=== PATIENT | male | born 1970 | race Caucasian/White ===

== ENCOUNTER 2018-10-08 18:38 | Emergency (ER) | payer SELFPAY ==
[2018-10-08] MEDS ORDERED: Lorazepam 2 MG/ML VIAL ONE (19:01)
[2018-10-08 19:34] LABS: #Basophils 0.1 thou/uL (0.0-0.2); #Eosinphils 0.2 thou/uL (0.0-0.7); #Lymphocytes 3.1 thou/uL (1.20-3.40); #Monocytes 0.8 thou/uL (0.11-0.59); #Neutrophils 10.5 thou/uL (1.40-6.50); %Eosinophils 1.4 % (0.0-10.0); %Lymphocytes 20.8 % (21.0-51.0); %Monocytes 5.5 % (0.0-10.0); %Neutrophils 71.3 % (42.0-75.0); Hemoglobin 16.8 g/dL (14.0-18.0); Mean Corpuscular Hemoglobin 30.3 pg (27.0-31.0); Mean Corpuscular Volume 86.5 fL (78.0-98.0); Mean Platelet Volume 7.2 fL (7.4-10.4); Platelet Count 325 thou/uL (130-400); RBC Distribution Width 11.3 % (11.5-14.5); Red Blood Cell (RBC) Count 5.53 mill/uL (4.70-6.10); White Blood Cell (WBC) Count 14.7 thou/uL (4.8-10.8)
[2018-10-08 19:52] LABS: ALT (SGPT) 51 U/L (8-55); AST (SGOT) 26 U/L (5-34); Albumin 4.8 g/dL (3.5-5.0); Alkaline Phosphatase 53 U/L (40-150); Anion Gap 17 mmol/L (10-20); BUN (Urea Nitrogen) 24 mg/dL (8.9-20.6); Bilirubin, Total 0.8 mg/dL (0.2-1.2); Calc. Creatinine Clearance 0 mL/min (70-130); Calcium 9.8 mg/dL (7.8-10.44); Carbon Dioxide 21 mmol/L (22-29); Chloride 107 mmol/L (98-107); Estimated GFR-MDRD 51; Globulin 2.6 g/dL (2.4-3.5); Glucose 79 mg/dL (70-105); Protein, Total 7.4 g/dL (6.0-8.3); Sodium 141 mmol/L (136-145)
[2018-10-08 19:55] LABS: Prothrombin Time 13.3 SEC (12.0-14.7)
--- NOTE | 2018-10-08 20:18 | RAD ---
PA AND LATERAL CHEST X-RAY 10/08/18 HISTORY: Chest pain. COMPARISON: 07/26/15. FINDINGS: The cardiac silhouette is mildly enlarged. The pulmonary vasculature is within normal limits. The tim gs are clear. There has been no interval change from prior exam. IMPRESSION: 1. No acute cardiopulmonary process. 2. Mild cardiomegaly. POS: [facility]
--- NOTE | 2018-10-08 20:31 | RAD ---
TWO VIEWS NECK SOFT TISSUES: 10/08/18 INDICATION: Report of a chicken bone in the throat. COMPARISON: None. FINDINGS: There is a radiopaque density seen within the region of the aryepiglottic fold which may reflect a sm all retained chicken bone. The remaining visualized soft tissues of the neck are otherwise within nor mal limits. The lung apices are clear. Mild spondylosis seen involving the cervical spine. IMPRESSION: Small radiopaque density seen within the region of the aryepiglottic folds may reflect the retained c hicken bone. Recommend direct visualization. POS: [facility]
== END 2018-10-08 20:18 | disposition short-term general hospital (02) ==
LOC: MADERS 18:38
DX: T18.128A Food in esophagus causing other injury, initial encounter (principal); I10 Essential (primary) hypertension; F17.220 Nicotine dependence, chewing tobacco, uncomplicated; Z79.899 Other long term (current) drug therapy
CPT/HCPCS: 36415; 70360; 71046; 80053; 85025; 85610; J1610; J2060

== ENCOUNTER 2019-05-17 15:51 | Emergency (ER) | payer SELFPAY ==
[2019-05-17] MEDS ORDERED: Fentanyl 100 MCG/2 ML VIAL ONE ×2 (15:55→15:56)
[2019-05-17] MEDS ORDERED: Propofol 1,000 MG/100 ML VIAL IV ONE (16:07)
--- NOTE | 2019-05-17 16:39 | RAD ---
RIGHT ANKLE TWO VIEWS: HISTORY: Injury. FINDINGS: There is fracture-dislocation at the ankle. There posterior dislocation of the tibiotalar joint with the talus posteriorly dislocated. There is evidence of a lateral malleolar fracture, which is not a dequately evaluated on this two view study. Medial and posterior malleolar fracture. POS: [facility]
--- NOTE | 2019-05-17 16:44 | RAD ---
RIGHT ANKLE THREE VIEWS: INDICATIONS: Post reduction. COMPARISON: Pre-reduction films. FINDINGS: Cast material is now in place. The ankle-dislocation has been reduced. The tibiotalar joint shows n ormal alignment. A trimalleolar fracture is noted. Fractures of the lateral malleolus, posterior ma lleolus, and medial malleolus noted. No significant displacement seen on this post reduction study. POS: [facility]
[2019-05-17] MEDS ORDERED: Ibuprofen 800 MG TAB ONE (17:18)
[2019-05-17] MEDS ORDERED: HYDROcodone/Acetaminophen 5/325 mg Tablet ONE (17:18)
== END 2019-05-17 17:23 | disposition home or self-care (01) ==
LOC: MADERS 15:51
DX: S82.851A Displaced trimalleolar fracture of right lower leg, initial encounter for closed fracture (principal); S93.04XA Dislocation of right ankle joint, initial encounter; I10 Essential (primary) hypertension; K21.9 Gastro-esophageal reflux disease without esophagitis; F41.9 Anxiety disorder, unspecified; F17.220 Nicotine dependence, chewing tobacco, uncomplicated; W18.11XA Fall from or off toilet without subsequent striking against object, initial encounter; Y92.009 Unspecified place in unspecified non-institutional (private) residence as the place of occurrence of the external cause; Z79.899 Other long term (current) drug therapy
CPT/HCPCS: J2704; J3010

== ENCOUNTER 2019-09-28 11:39 | Emergency (ER) | payer SELFPAY ==
--- NOTE | 2019-09-28 12:43 | CT ---
CT head noncontrast HISTORY: Headache. Prior brain tumor with resection. COMPARISON: 03/05/2007. FINDINGS: There is no evidence of acute intracranial hemorrhage or infarct. Postoperative changes of the right frontotemporal calvarium with encephalomalacia of the underlying right frontal lobe. Consistent with prior tumor resection. There is no mass effect or shift of midline structures. Ventri cles are unremarkable. Visualized paranasal sinuses remain well aerated. IMPRESSION: Prior right frontal craniotomy with tumor resection and residual encephalomalacia. No acu te intracranial abnormalities are demonstrated.
== END 2019-09-28 13:07 | disposition home or self-care (01) ==
LOC: MADERS 11:39
DX: R51 Headache (principal); M79.10 Myalgia, unspecified site; I10 Essential (primary) hypertension; K21.9 Gastro-esophageal reflux disease without esophagitis; F41.9 Anxiety disorder, unspecified; F17.220 Nicotine dependence, chewing tobacco, uncomplicated; Z79.899 Other long term (current) drug therapy; Z85.841 Personal history of malignant neoplasm of brain
CPT/HCPCS: 70450

== ENCOUNTER 2020-02-20 13:09 | Emergency (ER) | payer SELFPAY ==
--- NOTE | 2020-02-20 13:49 | RAD ---
EXAM: Chest PA and lateral: HISTORY: Cough. COMPARISON: 10/08/2018 FINDINGS: Heart: Normal cardiac silhouette Aorta: Unremarkable Pulmonary vessels: Normal Costophrenic angles: Costophrenic angles are clear. Lungs: No consolidation or masses. Pneumothorax: No pneumothorax Osseous structures: No osseous abnormalities IMPRESSION: No acute cardiopulmonary process.
[2020-02-20] MEDS ORDERED: Benzonatate 100 MG CAP ONE (14:09)
== END 2020-02-20 14:14 | disposition home or self-care (01) ==
LOC: MADERS 13:09
DX: J06.9 Acute upper respiratory infection, unspecified (principal); K21.9 Gastro-esophageal reflux disease without esophagitis; F41.9 Anxiety disorder, unspecified; F17.220 Nicotine dependence, chewing tobacco, uncomplicated; Z79.899 Other long term (current) drug therapy
CPT/HCPCS: 71046

== ENCOUNTER 2020-04-25 20:14 | Emergency (ER) | payer SELFPAY ==
[2020-04-25 20:55] LABS: Bilirubin Negative (Negative); Blood, Urine Negative (Negative); Clarity Clear (Clear); Glucose, Urine (Dipstick) Negative (Negative); Leukocyte Negative (Negative); Nitrite Negative (Negative); Protein, Urine (Dipstick) Negative (Neg-Trace)
== END 2020-04-25 21:16 | disposition home or self-care (01) ==
LOC: MADERS 20:14
DX: R31.9 Hematuria, unspecified (principal); I10 Essential (primary) hypertension; K21.9 Gastro-esophageal reflux disease without esophagitis; F41.9 Anxiety disorder, unspecified; F17.220 Nicotine dependence, chewing tobacco, uncomplicated; Z79.899 Other long term (current) drug therapy
CPT/HCPCS: 81003; 87086; 99283

== ENCOUNTER 2021-11-13 13:54 | Emergency (ER) | payer OTHER, SELFPAY ==
[2021-11-13 15:18] LABS: #Basophils 0.1 thou/uL (0.0-0.2); #Eosinphils 0.3 thou/uL (0.0-0.7); #Lymphocytes 2.9 thou/uL (1.20-3.40); #Monocytes 0.8 thou/uL (0.11-0.59); #Neutrophils 9.2 thou/uL (1.40-6.50); %Eosinophils 2.4 % (0.0-10.0); %Lymphocytes 21.3 % (21.0-51.0); %Monocytes 6.3 % (0.0-10.0); %Neutrophils 68.9 % (42.0-75.0); Mean Corpuscular HGB CONC 32.7 g/dL (32.0-36.0); Mean Corpuscular Hemoglobin 28.8 pg (27.0-31.0); Mean Corpuscular Volume 88.1 fL (78.0-98.0); Mean Platelet Volume 6.8 fL (7.4-10.4); Platelet Count 323 thou/uL (130-400); RBC Distribution Width 11.5 % (11.5-14.5); Red Blood Cell (RBC) Count 6.26 mill/uL (4.70-6.10); White Blood Cell (WBC) Count 13.4 thou/uL (4.8-10.8)
[2021-11-13 15:33] LABS: ALT (SGPT) 45 U/L (8-55); AST (SGOT) 20 U/L (5-34); Albumin 4.4 g/dL (3.5-5.0); Alkaline Phosphatase 52 U/L (40-110); Anion Gap 13 mmol/L (10-20); BUN (Urea Nitrogen) 15 mg/dL (8.9-20.6); Bilirubin, Total 0.4 mg/dL (0.2-1.2); Calc. Creatinine Clearance 0 mL/min (70-130); Calcium 10.1 mg/dL (7.8-10.44); Carbon Dioxide 27 mmol/L (22-29); Chloride 106 mmol/L (98-107); Globulin 2.9 g/dL (2.4-3.5); Glucose 97 mg/dL (70-105); Lipase 59 U/L (8-78); Potassium 4.2 mmol/L (3.5-5.1); Protein, Total 7.3 g/dL (6.0-8.3); Sodium 142 mmol/L (136-145)
== END 2021-11-13 16:40 | disposition home or self-care (01) ==
LOC: MADERS 13:54
DX: R10.32 Left lower quadrant pain (principal); I10 Essential (primary) hypertension; K21.9 Gastro-esophageal reflux disease without esophagitis; F17.220 Nicotine dependence, chewing tobacco, uncomplicated
CPT/HCPCS: 36415; 74176; 80053; 83605; 83690; 85025

== ENCOUNTER 2022-11-05 11:20 | Emergency (ER) | payer BC, OTHER ==
[2022-11-05] MEDS ORDERED: Aspirin Chewable 81 MG TAB ONE (11:52)
[2022-11-05 11:54] LABS: #Basophils 0.1 thou/uL (0.0-0.2); #Eosinphils 0.2 thou/uL (0.0-0.7); #Lymphocytes 2.3 thou/uL (1.20-3.40); #Monocytes 0.5 thou/uL (0.11-0.59); #Neutrophils 6.2 thou/uL (1.40-6.50); %Eosinophils 2.6 % (0.0-10.0); %Lymphocytes 24.5 % (21.0-51.0); %Monocytes 5.3 % (0.0-10.0); %Neutrophils 66.6 % (42.0-75.0); Hemoglobin 17.6 g/dL (14.0-18.0); Mean Corpuscular HGB CONC 33.1 g/dL (32.0-36.0); Mean Corpuscular Hemoglobin 28.8 pg (27.0-31.0); Mean Platelet Volume 7.7 fL (7.4-10.4); Platelet Count 274 10x3/uL (130-400); RBC Distribution Width 11.5 % (11.5-14.5); Red Blood Cell (RBC) Count 6.12 mill/uL (4.70-6.10); White Blood Cell (WBC) Count 9.3 10x3/uL (4.8-10.8)
[2022-11-05 12:13] LABS: ALT (SGPT) 40 U/L (8-55); AST (SGOT) 18 U/L (5-34); Albumin 4.2 g/dL (3.5-5.0); Alkaline Phosphatase 47 U/L (40-110); Anion Gap 11 mmol/L (10-20); BUN (Urea Nitrogen) 16 mg/dL (8.4-25.7); Bilirubin, Total 0.9 mg/dL (0.2-1.2); Calc. Creatinine Clearance 0 mL/min (70-130); Calcium 9.3 mg/dL (7.8-10.44); Carbon Dioxide 25 mmol/L (22-29); Chloride 105 mmol/L (98-107); Estimated GFR 68; Globulin 2.7 g/dL (2.4-3.5); Glucose 81 mg/dL (70-105); Lipase 132 U/L (8-78); Potassium 4.3 mmol/L (3.5-5.1); Protein, Total 6.9 g/dL (6.0-8.3); Sodium 137 mmol/L (136-145)
== END 2022-11-05 15:33 | disposition home or self-care (01) ==
LOC: MADERS 11:20
DX: K85.90 Acute pancreatitis without necrosis or infection, unspecified (principal); I45.10 Unspecified right bundle-branch block; I10 Essential (primary) hypertension; K21.9 Gastro-esophageal reflux disease without esophagitis; F17.220 Nicotine dependence, chewing tobacco, uncomplicated
CPT/HCPCS: 71046; 80053; 83690; 83880; 84484; 85025; 85379; 93005; 94760

== ENCOUNTER 2023-06-08 11:25 | Emergency (ER) | payer BC, OTHER, SELFPAY ==
[~2023-06-08 11:25] MED LIST: Iopamidol 370 76% 100 ML VIAL ONE
[2023-06-08 12:00] LABS: #Basophils 0.1 thou/uL (0.0-0.2); #Eosinphils 0.3 thou/uL (0.0-0.7); #Lymphocytes 2.4 thou/uL (1.20-3.40); #Monocytes 0.8 thou/uL (0.11-0.59); #Neutrophils 7.3 thou/uL (1.40-6.50); %Basophils 0.9 % (0.0-1.0); %Eosinophils 2.4 % (0.0-10.0); %Lymphocytes 22.1 % (21.0-51.0); %Neutrophils 67.6 % (42.0-75.0); Hemoglobin 17.7 g/dL (14.0-18.0); Mean Corpuscular HGB CONC 33.5 g/dL (32.0-36.0); Mean Corpuscular Hemoglobin 29.7 pg (27.0-31.0); Mean Corpuscular Volume 88.6 fl (78.0-98.0); Mean Platelet Volume 8.5 fL (7.4-10.4); Platelet Count 312 10x3/uL (130-400); RBC Distribution Width 12.6 % (11.5-14.5); Red Blood Cell (RBC) Count 5.94 mill/uL (4.70-6.10); White Blood Cell (WBC) Count 10.8 10x3/uL (4.8-10.8)
[2023-06-08 12:14] LABS: ALT (SGPT) 58 U/L (8-55); AST (SGOT) 25 U/L (5-34); Albumin 4.4 g/dL (3.5-5.0); Alkaline Phosphatase 46 U/L (40-110); Anion Gap 13 mmol/L (10-20); BUN (Urea Nitrogen) 14 mg/dL (8.4-25.7); Bilirubin, Total 0.8 mg/dL (0.2-1.2); Calc. Creatinine Clearance 0 mL/min (70-130); Calcium 9.6 mg/dL (7.8-10.44); Carbon Dioxide 28 mmol/L (22-29); Chloride 103 mmol/L (98-107); Estimated GFR 72; Globulin 2.6 g/dL (2.4-3.5); Glucose 83 mg/dL (70-105); Potassium 3.7 mmol/L (3.5-5.1); Sodium 140 mmol/L (136-145)
== END 2023-06-08 13:44 | disposition home or self-care (01) ==
LOC: MADERS 11:25
DX: K42.9 Umbilical hernia without obstruction or gangrene (principal); I10 Essential (primary) hypertension; F17.220 Nicotine dependence, chewing tobacco, uncomplicated
CPT/HCPCS: 74177; 80053; 85025; Q9967

== ENCOUNTER 2023-10-15 17:26 | Outpatient (CLI) | payer OTHER | END 2023-10-15 17:27 | disposition home or self-care (01) | LOC: MADCT 17:26 | PROVIDERS: ATTEND Surgery | DX: K43.9 Ventral hernia without obstruction or gangrene (principal) | CPT/HCPCS: 74177 ==

== ENCOUNTER 2023-12-27 04:45 | Emergency (ER) | payer BC, OTHER ==
[2023-12-27] MEDS ORDERED: Benzonatate 100 MG CAP ONE (05:08)
== END 2023-12-27 05:15 | disposition home or self-care (01) ==
LOC: MADERS 04:45
DX: J20.9 Acute bronchitis, unspecified (principal); I10 Essential (primary) hypertension; F17.220 Nicotine dependence, chewing tobacco, uncomplicated; Z79.899 Other long term (current) drug therapy
CPT/HCPCS: 99283